=== PATIENT | male | born 1965 | race African-American/Black ===

== ENCOUNTER 2018-01-01 21:03 | Emergency (ER) | payer MEDICAID, OTHER ==
[~2018-01-01] VITALS: Ht 177.8 cm; Wt 108.9 kg
[~2018-01-01 21:03] MED LIST: NKM
[2018-01-01 21:30] VITALS: BP 112/62
[2018-01-01 21:53] LABS: BASOPHILS % (AUTO) 2.2 % (0.0-2.0); EOSINOPHILS % (AUTO) 0.1 % (0.0-3.0); HEMATOCRIT 38.7 % (42.0-52.0); HEMOGLOBIN 13.1 G/DL (14.2-18.0); LYMPHOCYTES % (AUTO) 11.6 % (20.0-45.0); MEAN CORPUSCULAR VOLUME 87 FL (80-99); MONOCYTES % (AUTO) 4.1 % (1.0-10.0); NEUTROPHILS % (AUTO) 81.9 % (45.0-75.0); PLATELET COUNT 134 K/UL (150-450); RED BLOOD COUNT 4.45 M/UL (4.70-6.10); RED CELL DISTRIBUTION WIDTH 12.6 % (11.6-14.8); WHITE BLOOD COUNT 6.9 K/UL (4.8-10.8)
[2018-01-01 22:03] LABS: ANION GAP 12 mmol/L (5-15); BLOOD UREA NITROGEN 46 mg/dL (7-18); CALCIUM 9.5 MG/DL (8.5-10.1); CARBON DIOXIDE 25 MMOL/L (21-32); CHLORIDE 98 MMOL/L (98-107); CREATININE 9.6 MG/DL (0.55-1.30); POTASSIUM 4.1 MMOL/L (3.5-5.1); SODIUM 135 MMOL/L (136-145)
--- NOTE | 2018-01-01 22:05 | Emergency Room Report ---
History of Present Illness General Chief Complaint: Chest Pain Source: Patient Present Illness HPI Patient present with complaints of chest pain Reports that this started yesterday Patient gets dialysis Friday and Friday He reports that during dialysis yesterday he experienced similar pain He reports that he went to the hospital however no blood work was obtained Today after experiencing similar pain he presents for further evaluation Denies any shortness of breath denies any change with position or exertion Denies any cough or fevers Allergies: Coded Allergies: No Known Allergies (Unverified , 01/01/18) Patient History Past Medical History: see triage record Pertinent Family History: none Reviewed Nursing Documentation: PMH: Agreed; PSxH: Agreed Nursing Documentation-PMH Hx Pacemaker: Yes - pacemaker, large heart Hx Diabetes: Yes Hx Neurological Problems: Yes - renal failure Review of Systems All Other Systems: negative except mentioned in HPI Physical Exam Vital Signs Date Time Temp Pulse Resp B/P (MAP) Pulse Ox O2 Delivery O2 Flow Rate FiO2 01/01/18 20:52 98.8 90 16 135/78 95 Room Air Sp02 EP Interpretation: reviewed, normal General Appearance: well appearing, no apparent distress Head: normocephalic, atraumatic Eyes: bilateral eye PERRL, bilateral eye EOMI ENT: hearing grossly normal, normal pharynx, TMs + canals normal, uvula midline Neck: full range of motion, supple, no meningismus, no bony tend Respiratory: lungs clear, normal breath sounds, no rhonchi, no respiratory distress, no retraction, no accessory muscle use Cardiovascular #1: normal peripheral pulses, regular rate, rhythm, no edema, no gallop, no JVD, no murmur Gastrointestinal: normal bowel sounds, non tender, soft, no mass, no organomegaly, non-distended, no guarding, no hernia, no pulsatile mass, no rebound Genitourinary: no CVA tenderness Musculoskeletal: normal inspection Neurologic: oriented x3, responsive, training director III-XII nml as tested, motor strength/ tone normal, sensory intact Psychiatric: mood/affect normal Skin: normal color, no rash, warm/dry, palpation normal Lymphatic: normal inspection, no adenopathy Medical Decision Making Diagnostic Impression: Primary Impression: Chest pain ER Course Patient is a fairly complex patient with multiple differential to consideration including but not limited to cardiac cardiopulmonary and vascular emergencies Patient continues to rest in the emergency room Hemodynamically remaining stable patient does have clinical signs of sleep apnea Blood work is consistent with renal failure with minimal elevation of troponin otherwise all within normal limits Patient's x-ray also shows clinical correlation with medical history otherwise is in no respiratory distress or shortness of breath Patient continues to show paced rhythm is pain-free at this time and stable for close follow-up Labs Test 01/01/18 21:41 White Blood Count 6.9 K/UL (4.8-10.8) Red Blood Count 4.45 M/UL (4.70-6.10) Hemoglobin 13.1 G/DL (14.2-18.0) Hematocrit 38.7 % (42.0-52.0) Mean Corpuscular Volume 87 FL (80-99) Mean Corpuscular Hemoglobin 29.6 PG (27.0-31.0) Mean Corpuscular Hemoglobin Concent 34.0 G/DL (32.0-36.0) Red Cell Distribution Width 12.6 % (11.6-14.8) Platelet Count 134 K/UL (150-450) Mean Platelet Volume 7.4 FL (6.5-10.1) Neutrophils (%) (Auto) 81.9 % (45.0-75.0) Lymphocytes (%) (Auto) 11.6 % (20.0-45.0) Monocytes (%) (Auto) 4.1 % (1.0-10.0) Eosinophils (%) (Auto) 0.1 % (0.0-3.0) Basophils (%) (Auto) 2.2 % (0.0-2.0) Sodium Level 135 MMOL/L (136-145) Potassium Level 4.1 MMOL/L (3.5-5.1) Chloride Level 98 MMOL/L (98-107) Carbon Dioxide Level 25 MMOL/L (21-32) Anion Gap 12 mmol/L (5-15) Blood Urea Nitrogen 46 mg/dL (7-18) Creatinine 9.6 MG/DL (0.55-1.30) Estimat Glomerular Filtration Rate 6.9 mL/min (>60) Glucose Level 368 MG/DL (74-106) Calcium Level 9.5 MG/DL (8.5-10.1) Total Bilirubin 0.6 MG/DL (0.2-1.0) Aspartate Amino Transf (AST/SGOT) 15 U/L (15-37) Alanine Aminotransferase (ALT/SGPT) 27 U/L (12-78) Alkaline Phosphatase 144 U/L (46-116) Total Creatine Kinase 273 U/L (26-308) Creatine Kinase MB 5.3 NG/ML (0.0-3.6) Creatine Kinase MB Relative Index 1.9 Troponin I 0.075 ng/mL (0.000-0.056) Total Protein 9.0 G/DL (6.4-8.2) Albumin 3.3 G/DL (3.4-5.0) Globulin 5.7 g/dL Albumin/Globulin Ratio 0.6 (1.0-2.7) EKG Diagnostic Results Rate: normal Rhythm: other - paced ST Segments: no acute changes Rhythm Strip Diag. Results EP Interpretation: yes Rate: 60 Rhythm: no PVC's, no ectopy, other - paced Chest X-Ray Diagnostic Results Chest X-Ray Diagnostic Results : Chest X-Ray Ordered: Yes # of Views/Limited/Complete: 1 View Indication: Chest Pain EP Interpretation: Yes Interpretation: no consolidation, no effusion, no pneumothorax, other - Cardiomegaly, mild edema Impression: Other - Cardiomegaly mild edema Electronically Signed by: Sean Law DO Last Vital Signs Date Time Temp Pulse Resp B/P (MAP) Pulse Ox O2 Delivery O2 Flow Rate FiO2 01/01/18 20:52 98.8 90 16 135/78 95 Room Air Status: improved Disposition: HOME, SELF-CARE Condition: Improved Referrals: [facility],REFERRING (PCP) Additional Instructions: Patient is provided with the discharge instructions notified to follow up with primary doctor in the next 2-3 days otherwise return to the er with any worsening symptoms. Please note that this report is being documented using [employer] technology. This can lead to erroneous entry secondary to incorrect interpretation by the dictating instrument. Sean Law DO Jan 01, 2018 22:04
[2018-01-01 22:15] LABS: ALANINE AMINOTRANSFERASE 27 U/L (12-78); ALBUMIN 3.3 G/DL (3.4-5.0); ALBUMIN/GLOBULIN RATIO 0.6 (1.0-2.7); ALKALINE PHOSPHATASE 144 U/L (46-116); ASPARTATE AMINO TRANSFERASE 15 U/L (15-37); BILIRUBIN,TOTAL 0.6 MG/DL (0.2-1.0); CKMB 5.3 NG/ML (0.0-3.6); CREATINE KINASE 273 U/L (26-308)
[2018-01-02 01:16] VITALS: BP 123/70
[2018-01-02 01:18] VITALS: BP 123/70
--- NOTE | 2018-01-02 13:50 | Diagnostic Imaging Report ---
Indication: Chest pain Comparison: None A single view chest radiograph was obtained. Findings: Right jugular permacath is present in good position. The tip is projected over the right atrium. Mild interstitial edema suspected with low lung volumes and cardiomegaly. IMPRESSION: Mild interstitial edema suspected.
== END 2018-01-02 01:34 | disposition home or self-care (01) ==
LOC: EDBD 21:03 → EMR 21:44
DX: R07.9 Chest pain, unspecified (principal); E11.9 Type 2 diabetes mellitus without complications; Z95.0 Presence of cardiac pacemaker; N19 Unspecified kidney failure
CPT/HCPCS: 36415; 71045; 80053; 82550; 82553; 82962; 84484; 85025; 93005; 99284